=== PATIENT | female | born 1950 | race Caucasian/White ===

== ENCOUNTER 2016-06-18 07:00 | Day surgery (SDC) | payer MEDICARE, OTHER ==
[~2016-06-18] VITALS: Ht 165.1 cm; Wt 163.2 kg
--- NOTE | 2016-06-18 06:59 | PCM.HPANE ---
Patient Data Surgeon Admitting Provider: Attending Provider:Duglas Aguero MD Primary Care Physician:Sue Carter MD Other Provider:[facility] Reason for Visit Constipation Ht/WT & BMI Body Mass Index Allergies Coded Allergies: Clarithromycin (Verified Allergy, Intermediate, Rash, 07/09/11) Past Anesthesia History Anesthesia History: Denies:: Anesthesia Reactions Diabetes History Hx Diabetes?: No MRSA MRSA: No Medications Reported Medications Pramipexole Di-HCl (Pramipexole Dihydrochloride)0.75 Mg Tablet0.75 Mg PO HS 06/18/16 Oxybutynin Chloride 5 Mg Tablet5 Mg PO TID Ref 0 06/18/16 Albuterol HFA (Proair HFA)8.5 Gm Hfa.aer.ad2 Puffs INHALATION Q4H #1 INHALER 06/18/16 Mometasone/Formoterol (Dulera 100 Mcg/5 Mcg Inhaler)13 Gm Hfa.aer.ad13 Gm IH DAILY 06/18/16 Lisinopril 20 Mg [id number] Mg PO DAILY 30 Days Ref 0 06/18/16 Discontinued Reported Medications Oxybutynin Chloride 5 Mg Tablet5 Mg PO HS Ref 0 06/17/16 Pramipexole Dihydrochloride (Mirapex)0.5 Mg Tablet0.5 Mg PO HS 06/17/16 Salmeterol Janet-Expunged Drug, Do Not Renew! (Serevent Diskus-Expunged Drug, Do Not Renew!)50 Mcg/Disk W/Dev Disk.w.dev1 Puff IH AM 07/09/11 Albuterol-Expunged Drug, Do Not Renew! 8.5 Gm Hfa.aer.ad2 Puffs IH Q4 PRN 07/09/11 Beclomethasone-Expunged Drug, Do Not Renew! (Wfla-16-Bvspxcmq Drug, Do Not Renew !)80 Mcg Puff2 Puffs INH AM 07/09/11 History History of ENT Problems?: Yes HEENT History: Positive for:: Cataracts (beginnings of cataracts) Denies:: Dysphagia Sinus Problem Hx of Heart Problems?: No Cardiovascular History: Denies:: Cardiac Surgery Chest Pain Congestive Heart Failure Edema Heart Murmur Hypertension Irregular Heartbeat Pacemaker Thrombophlebitis Hx of Respiratory Problem?: Yes Respiratory History: Positive for:: Asthma Denies:: COPD Chest Surgery Dyspnea Emphysema Hemoptysis Pneumonia Tuberculosis Hx Neurologic Problems?: No Hx of GI Problems?: No Hx of Problems?: No Female Hx: Denies:: Currently Endometriosis Pelvic Inflammatory Problems with Breasts? Hx Musculoskeletal Problems?: Yes Musculoskeletal History: Denies:: Back Injury Joint Replacement Musculoskeletal Trauma Hx of Psycho/Social Problems?: Yes Psycho Social History: Denies:: Anxiety Bipolar Disorder Hx Depression Suicide Attempt Hx Surgeries?: Yes (hyst, breast reduction, lana, gastric banding, R ring trigger finger) Hx Any Other Health Problems?: Yes Other History: Positive for:: Cancer (cervical, removed) Hospitalization (surgeries) Denies:: Endocrine Disease Thyroid Disease History Blood Transfusions: Denies:: Blood Transfusions Hx Diabetes: No Hx Alcohol Use: Yes (occasional)Hx Substance Use: No Stop/Bang Risk Assessment Category Category 1A: Patient has history of documented sleep apnea, and HAS NOT received any narcotic, sedative or anesthesia administration during this stay. Category 1B: Patient has history of documented sleep apnea, and HAS received any narcotic , sedative or anesthesia administration during this stay Category 2: Patient has SUSPECTED Obstructive Sleep Apnea, and HAS received any narcotic , sedative or anesthesia administration during this stay. Category 3: Patient has SUSPECTED Obstructive Sleep Apnea and HAS NOT received narcotic, sedative or anesthesia administration during this stay. Category 4: Outpatient in Procedural Areas with known sleep apnea or who screen positive for High Risk via the STOP/BANG questionnaire. Exam Exam General Appearance: Alert, Oriented X3, Cooperative, No Acute Distress HEENT/AIRWAY: MP 4, Neck Movement (Very Thick, 20% expected ROM), Mouth Opening (SMALL) Lungs: Clear to Auscultation Heart: Exam Unremarkable Plan Impression Patient chart reviewed, patient interviewed and anesthestic plan with risks, benefits, and alternatives discussed, and informed consent obtained. ASA Physical Status: ASA3 Severe Disease Anesthetic Support Modalities: [place] Scope (in Room) Anesthetic Plan: GA Bene/Risks/Altern/Consents: Yes HP Complete Prior to Induction: Yes Clay Buenrostro MD Jun 18, 2016 06:59
[~2016-06-18 07:00] MED LIST: ALBU8.5H4 IH; Lactated Ringer's 1,000 ML IV ONE; OXYB5TAB10 PO; PRAM0.5T3 PO; QVAR80 INH; SALM50DI IH
[2016-06-18] MEDS ORDERED: fentaNYL-PF 50 mCg/mL 2 mL Inj ONE (07:01)
[2016-06-18] MEDS ORDERED: Propofol 10,000 mCg/mL 20 mL Inj ONE (07:01)
[2016-06-18 07:36] VITALS: BP 142/70; PULSE 89; RESP 16; O2SAT 92
[2016-06-18] MEDS ORDERED: OXYB5TAB10 PO (07:36)
[2016-06-18] MEDS ORDERED: PRAM0.754 PO (07:36)
[2016-06-18] MEDS ORDERED: ALBU8.5H2 INHALATION (07:36)
[2016-06-18] MEDS ORDERED: LISI-567 PO (07:36)
[2016-06-18] MEDS ORDERED: MOME13HF2 IH (07:36)
[2016-06-18] MEDS ORDERED: 0.9% Sodium Chloride 1,000 ML IV PRN (08:44)
[2016-06-18 08:45] VITALS: BP 119/65; PULSE 86; RESP 14; O2SAT 93
[2016-06-18] MEDS ORDERED: fentaNYL-PF 50 mCg/mL 2 mL Inj IVPUSH PRN (08:45)
[2016-06-18] MEDS ORDERED: Sodium Chloride LOK Flush 10 mL Syringe IV PRN (08:45)
--- NOTE | 2016-06-18 08:46 | PCM.ANEP1 ---
Post Anesthesia Phase 1 PACU Phase 1 Assessment Vital Signs Vital Signs Date Time Temp Pulse Resp B/P Pulse Ox O2 Delivery O2 Flow Rate FiO2 06/18/16 07:36 89 16 142/70 92 Room Air Anesthetic Administered: GA Level of Alertness: Awake, talking SUMMERS's with Equal Strength: Yes Pain: No Nausea or Vomiting: No Oxygen Delivery: Room Air Lungs: Normal Air Movement Clay Buenrostro MD Jun 18, 2016 08:46
--- NOTE | 2016-06-18 08:48 | PCM.ENDCOL ---
Colonoscopy Date of Service: Jun 18, 2016 Physician Duglas Aguero MD Indication for Procedure Screening for colon cancer Post Procedure Dx & Findings: Suboptimal prep Colon polyp Hemorrhoids Procedure Colonoscopy Prep suboptimal PROCEDURE IN DETAIL: After unremarkable rectal examination, Olympus video colonoscope was inserted into patient's anal canal and was advanced to cecum. Landmarks are difficult to identify. Visualized colonic mucosa was compromised due to the prep. Attempt at cleaning however was not salvageable. Limited visualization of the colonic mucosa showed that the mucosa of the cecum, ascending, transverse, descending, sigmoid, rectal mucosa lined with whitish, pink, smooth, glistening , normal-appearing mucosa, normal fine branching, underlying vascularity, normal haustra. The patient tolerated procedure and was transported to observation area. In the rectosigmoid junction there was 2 mm polyp which was resected completely using cold snare. In the rectum retroflexion was done which showed hemorrhoids and anal canal was inspected carefully and the way out and mild hemorrhoids noted. Impression Suboptimal study Colon polyp status post complete removal Hemorrhoids Recommendation Repeat colonoscopy 3 months with 2 days of clear and rivera prep. Presedation Assessment Risks and Benefits Informed consent was obtained from the patient after all risks and benefits including but not limited to drug reaction, infection, pain, bleeding, perforation, as well as alternatives were discussed. Patient monitoring Continuous pulse oximetry, cardiac monitoring, blood pressure monitoring, IV access, and oxygen at 2L per nasal cannula. Complications There were no periprocedural complications identified. Post Procedure Plan Post Procedure Recommendations 1. Restrict activities today. 2. Resume normal activities in the morning. 3. Resume medications. 4. Patient informed of normal post procedure side effects as bloating, drowsiness, blood streaking in the stool. 5. average risk CRCS. If colon polyps come back as: -Hyperplastic- can repeat colonoscopy in 10 years -Tubular adenoma- repeat colonoscopy in 5 years -Tubulovillous/villous adenoma- repeat colonoscopy in 3 years -If any dysplasia- return to clinic as soon as possible 6. Please don't hesitate to call me with any questions. Duglas Aguero MD Jun 18, 2016 08:48
[2016-06-18 09:00] VITALS: BP 139/64; PULSE 85; RESP 16; O2SAT 95
[2016-06-18 09:03] VITALS: BP 141/72; PULSE 85; RESP 16; O2SAT 96
--- NOTE | 2016-06-18 10:29 | PCM.ANEP2 ---
Post Anesthesia Evaluation ASA/CMS Post Anesthesia VS in Patient's Normal Range?: Yes Resp Stable; Airway Patent?: Yes CV Function & Hydration Stable: Yes Mental Status Recovered?: Yes Pain control Satisfactory?: Yes N/V Control Satisfactory?: Yes Clay Buenrostro MD Jun 18, 2016 10:29
--- NOTE | 2016-06-19 14:19 | PATH ---
SURGICAL PATHOLOGY Attending Physician:Duglas Aguero M.D. CASE STATUS: Signed Out PATIENT NAME: JUANCHO DE LUNA PID: [id number] : 1950 DATE COLLECTED:06/18/2016 20:34 SPECIMEN: Colon, Biopsy CLINICAL HISTORY: POLYP 1). RECTAL SIGMOID POLYP FINAL DIAGNOSIS: 1.RECTAL SIGMOID POLYP: HYPERPLASTIC POLYP. ICD10 CODE K63.5 GROSS DESCRIPTION: The specimen is received in one formalin filled container labeled with the patient's name, sublabeled "rectal/sigmoid polyp" and consists of a 0.2 x 0.2 x 0.2 CM portion of tissue which is entirely submitted in one cassette. 06/18/2016 DAC MICRO DESCRIPTION: See diagnosis. ICD-9 CODES: CPT CODES: 1: 44932 Electronically Signed Out Angus Pettit MD [facility] Pathology [facility] [address], [place] [address] Technical component performed at [facility], [address] [place] [address] Ave[address], [place], [address]
== END 2016-06-18 23:59 | disposition home or self-care (01) ==
LOC: END 07:00
PROVIDERS: ATTEND Internal Medicine
DX: K62.1 Rectal polyp (principal); K64.9 Unspecified hemorrhoids; K59.01 Slow transit constipation; J45.909 Unspecified asthma, uncomplicated; G47.33 Obstructive sleep apnea (adult) (pediatric)
CPT/HCPCS: 45385; J2250; J7120